=== PATIENT | male | born 1985 | race Caucasian/White ===

== ENCOUNTER 2019-07-31 09:37 | Emergency (ER) | payer MEDICAID, SELFPAY ==
[2019-07-31] VITALS (19 sets, daily range): BP systolic 110–157; BP diastolic 70–105; PULSE 62–87; RESP 14–26; TEMP 36.8; O2SAT 91–99
[2019-07-31] MEDS: Acetaminophen 500 MG TAB 1000 MG PO (09:59)
--- NOTE | 2019-07-31 10:17 | ED.GENADUL_ITS ---
Discharge Plan Disposition Patient Disposition: HOME Condition: Stable Discharge Details Chief Complaint: Orthopedic Clinical Impression: Anterior shoulder dislocation Primary Care Provider: Unknown,Unknown ED Provider: Tara Jesus Home Meds and New Rx's Prescriptions: No Action No Known Home Meds RF: 0 Discharge Instructions Instructions: Shoulder Dislocation Exercises (GEN), Shoulder Dislocation (ED) Additional Instructions: Rest. Activities as tolerated. Elevate injury to prevent swelling. Ice to the area of discomfort for 15 min. 3-5 times daily. Motrin every 8 hours with food or Tylenol every 6 hours for soreness if needed over the counter for comfort. Sling for 3 to 5 days. Pendulum exercises as discussed. Followup with orthopedic doctor for reevaluation Return for any worsening or concerns sooner if needed. Referrals: Alexis Ruiz MD [ [facility] STAFF PHYSICIAN] - Discharge Data Discharge Date/Time-TO BE ENTERED AT DEPARTURE: 07/31/19 13:03 Medical Decision Making <ARLEN Eng - Last Filed: 07/31/19 16:38> Is a 33-year-old patient presenting to the emergency room for complaints of left shoulder pain. Patient reports he slipped on his socks while going down the stairs this morning. He fell landing directly onto his left shoulder. Patient reports he fell down approximately 2 to 3 stairs. Patient denies striking his head neck or back. Patient denies any other sites of pain or injury. Patient denies headache, loss of consciousness, dizziness, neck or back pain. Patient did report transient nausea after falling but again was not concerned with the possibility of head injury today. Patient reports only focal left shoulder pain. Patient reports no other extremity complaints. No chest pain, difficulty breathing or shortness of breath or abdominal complaints. Patient denies numbness, tingling of extremities. Patient does report a history of several shoulder dislocations in the past. Patient reports he has had surgery on the left shoulder greater than a decade ago for multiple dislocations. Patient reports last dislocation was approximately 1 year ago. Patient reports sometimes he is able to reduce his shoulder at home or spontaneously reduces over hours. Patient presents complaining of left shoulder pain and has no other concerns at this time. On exam patient does have deformity noted to the left shoulder with obvious swelling anteriorly. Distal neurovascularly patient is intact. Pulses remained stable in the left arm distally. Sensation intact distally. Nothing to indicate neurovascular compromise at this time. IV access obtained, x-ray of left shoulder ordered. Tylenol given orally pending x-rays. After patient returned from x-ray he was complaining of moderate pain. Initial review of x-ray reveals anterior shoulder dislocation. Discussed with patient. We will plan to provide stronger pain medication prior to attempt at reduction. We did discuss reduction with sedation versus IV pain medication. Patient consents to trial of IV pain medication in attempts to reduce the left shoulder without sedation however patient does consent to the use of sedation if needed. Consent form signed, risks and benefits discussed. Patient reports his understanding. Patient denies any known allergies. Discussed case with Dr. Krishnamurthy who will assist with sedation if needed and reduction at the bedside. Patient given 1 mg of Dilaudid IV in addition to Zofran, attempted bedside reduction unsuccessful, patient having significant pain, deformity persists. At this time we collectively decided to hold on further attempts, patient consents to IV conscious sedation. Dr. Krishnamurthy manage sedation with propofol. See his procedure note. After adequate sedation additional attempts for left shoulder reduction performed, successful attempt clinically, deformity clinically improved. Patient placed in a sling, monitored while sedation is off and plan to have postreduction films obtained. Patient feels significantly improved at this time. Postreduction films do re veal significantly improved alignment. Reevaluation reveals preserved distal pulses and sensation. X-ray reveals reduction of the previously noted glenohumeral dislocation. No fracture identified on the limited series films obtained. Discussed possibility of ligamentous injury associated. Will recommend sling, rice and follow-up with orthopedics. Patient agrees with this plan of care. Sling provided, fits appropriately. The patient was stable and requested discharge. Prior to discharge, my usual and customary return precautions were reviewed with the patient - this included follow-up instructions and reasons to return to the Emergency Department if conditions worsens, does not improve as expected, or other new concerns arise. HPI <RALEN Eng - Last Filed: 07/31/19 16:38> General Date/Time Provider Initiated Documentation: 07/31/19 09:51 . HPI Narrative: This is a pleasant 33-year-old patient presenting to the emergency room for a fall down steps. Patient was on carpeted steps with socks on and accidentally slipped. Patient denies becoming dizzy or lightheaded prior to fall. Patient denies chest pain. Patient reports he slipped and fell on the stairs falling predominantly onto his left shoulder. Patient is complaining of left shoulder pain at this time. Patient reports history of several dislocations including shoulder surgery historically. Patient has been able to reduce his elbow at home without difficulty however patient at this time is reporting persistent pain and concern of possible dislocation. Patient denies obvious head strike. Denies loss of consciousness, headache, dizziness. He did report transient nausea after his fall and injury. Denies nausea or vomiting at this time. No vision change, blurred vision or tinnitus. Denies any neck or back pain. Denies any other extremity complaints. Patient denies numbness, tingling or weakness. 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 Patient denies any chest pain, difficulty breathing or shortness of breath or wheezing. No abdominal complaints. Only focal complaints in the left shoulder at this time. Related Data Home Medications Medication Instructions Recorded Confirmed Unknown [No Known Home Meds] 07/31/19 07/31/19 Allergies Allergy/AdvReac Type Severity Reaction Status Date / Time No Known Allergies Allergy Unverified 07/31/19 10:03 General Stated Complaint: Orthopedic KATHY: 3 Review of Systems <ARLEN Eng - Last Filed: 07/31/19 16:38> All systems reviewed & are unremarkable except as noted in HPI and below Constitutional Constitutional: Denies fever(s) and Denies headache(s) Eyes Eyes: Denies change in vision and Denies diplopia ENT Ears, Nose, Mouth, and Throat: Denies vertigo, Denies dizziness, Denies headache(s) and Denies neck pain Cardiovascular Cardiovascular: Denies chest pain, Denies lightheadedness and Denies dyspnea Respiratory Respiratory: Denies cough and Denies dyspnea Gastrointestinal Gastrointestinal: Denies abdominal pain, Denies diarrhea, Reports nausea (Resolved) and Denies vomiting Genitourinary Genitourinary: Denies hematuria and Denies urinary urgency Musculoskeletal Musculoskeletal: Denies abnormal gait, Denies back pain, Reports arthralgias, Reports limited range of motion, Denies neck pain, Denies numbness and Denies tingling Integumentary/Breasts Skin/Breast: Denies wounds Neurologic Neurologic: Denies abnormal gait, Denies vertigo, Denies dizziness, Denies headache(s), Denies numbness and Denies tingling PFSH <ARLEN Eng - Last Filed: 07/31/19 16:38> Social History Smoking/Tobacco Use Status: Current-Occasional Tobacco Type: cigarettes Drug use: Occasionally Substance use type: marijuana Do you feel safe at home: Yes Do you feel safe in your relationship?: Yes Exam <ARLEN Eng - Last Filed: 07/31/19 16:38> Narrative Exam Narrative: CONST: Healthy appearing patient, in no acute distress. Well hydrated. Alert and oriented. HENMT: Head nomocephalic, normal to inspection. Atraumatic. Hearing grossly normal. EYES: General normal appearance. Alignment normal. Eyelids normal. Conjunctiva normal. NECK: Normal visual inspection. FROM. Trachea midline. No Midline tenderness. CHEST: Normal insepection of the chest. No palpable chest tenderness RESP: Normal respiratory effort. Speaking full sentences. No cough. No audible wheezing. No retractions. CARDIO: No JVD. Abdomen: Abdomen is soft, nontender. No peritoneal signs, rebound or guarding. Back: No cervical, thoracic or lumbar pain with palpation. No rib tenderness posteriorly. No obvious bruising posteriorly MUSCULOSKELETAL: Normal Gait. Right arm exam benign. No pain with overhead reaching, no joint tenderness with palpation. No obvious deformity. Pulses intact director of software development strength intact. Left arm limited range of motion due to pain. Obvious anterior tenderness with palpation, anterior swelling present. Minimal humeral tenderness. No elbow pain with palpation. Supination pronation intact at left elbow. No forearm pain, wrist pain or hand pain with palpation. Sensation intact distally. Pulses intact distally. Hedge Fund Manager strength intact. Lower extremity exam normal bilaterally. Straight leg raise intact. No pain with internal or external rotation of hips. No joint tenderness noted. Strength intact distally of lower extremities. No foot drop. SKIN: Normal. Dry. No rashes. NEURO: Alert and awake. Speech clear. PSYCH: Normal affect. Cooperative. Course <ARLEN Eng - Last Filed: 07/31/19 16:38> Vital Signs Vital signs: Vital Signs Temperature 36.8 C 07/31/19 09:40 Pulse 65 07/31/19 09:40 Respiratory Rate 14 04/08/20 09:40 Blood Pressure 115/77 07/31/19 09:40 Pulse Oximetry 96 07/31/19 09:40 Temperature 36.8 C 07/31/19 09:40 Temperature Source Skin 07/31/19 09:40 Pulse 65 07/31/19 09:40 Respiratory Rate 14 07/31/19 09:40 Respiratory Effort 07/31/19 09:50 Blood Pressure 115/77 07/31/19 09:40 Blood Pressure Position Sitting 07/31/19 09:40 Pulse Oximetry 96 07/31/19 09:40 Oxygen Delivery Method Room Air 07/31/19 09:40 Oxygen Flow Rate 0 07/31/19 09:40 Pain Level 10 07/31/19 09:59 Comment 07/31/19 09:40 <Braden Krishnamurthy MD - Last Filed: 07/31/19 11:47> Procedural Sedation Indication: fracture/dislocation reduction ASA Class: I Preparation: senior oracle database developer applied, pulse oximeter, capnometry used and supplemental O2 applied IV Propofol dose (mg): 130 Patient Tolerated Procedure: well
--- NOTE | 2019-07-31 10:25 | DI.RAD_ITS ---
EXAM: XR SHOULDER LT COMPLETE 2+V CLINICAL HISTORY: pain, c/o dislocation r/o fracture TECHNIQUE: COMPARISON: No exams were available for comparison FINDINGS: Three views were obtained and show anterior dislocation of the humeral head from the glenoid fossa. No underlying fracture seen. IMPRESSION:
[2019-07-31] MEDS: Ondansetron 4 MG/2 ML VIAL IVP (11:03)
[2019-07-31] MEDS: HYDROmorphone 2 MG/ML VIAL 1 MG IVP (11:04)
[2019-07-31] MEDS: Normal Saline 1,000 ML 100 ML IV (11:05)
--- NOTE | 2019-07-31 11:30 | DI.RAD_ITS ---
EXAM: XR SHOULDER LT COMP POST REDUC CLINICAL HISTORY: post reduction TECHNIQUE: COMPARISON: No exams were available for comparison FINDINGS: Two views were obtained and show reduction of previously noted glenohumeral dislocation. No fracture identified on this limited series. IMPRESSION:
[2019-07-31] MEDS: Propofol 200 MG/20 ML VIAL 80 MG IVP (11:51)
== END 2019-07-31 13:03 | disposition home or self-care (01) ==
PROVIDERS: Emergency Provider Physician Assistant
DX: S43.015A Anterior dislocation of left humerus, initial encounter (principal); W01.0XXA Fall on same level from slipping, tripping and stumbling without subsequent striking against object, initial encounter
CPT/HCPCS: 23650; 73030; 96374; 96375; 99284; 99283; J2405; J2704; L3650